=== PATIENT | male | born 1970 | race Caucasian/White ===

== ENCOUNTER → 2017-01-17 13:34 | Emergency (ER) | payer OTHER ==
[~2017-01-17 13:34] MED LIST: Iohexol 300* (CONTRAST) 10 ML SDV IV ONE; Ketorolac INJ* 30 MG/ML 1 ML VIAL IV ONE; Morphine INJ* 4 MG/ML 1 ML SYRINGE IV ONE; Ondansetron INJ* 2 MG/ML VIAL IV ONE
[2017-01-17 17:46] LABS: Hematocrit 41 % (42-52); Hemoglobin 13.6 g/dl (14.0-18.0); Mean Corpuscular HGB Conc 33 g/dl (31-36); Mean Corpuscular Hemoglobin 26 pg (27-31); Mean Corpuscular Volume 79 fL (80-94); Mean Platelet Volume 8 um3 (7.4-10.4); Red Blood Count 5.16 10^6/ul (4.0-5.4); Red Cell Distribution Width 14 % (10.5-15)
[2017-01-17] MEDS: NS 0.9% 1000 ML* 2,000 ML IV ONE (17:49)
[2017-01-17 18:26] LABS: Albumin 4.6 g/dL (3.2-5.2); BUN/Creatinine Ratio 10.8 (8-20); C Reactive Protein 1.1 mg/L (< 5.00); Calcium 9.8 mg/dL (8.6-10.3); EGFR African American 92.5 (>60); Globulin 3.2 g/dL (2-4); Potassium 3.6 mmol/L (3.5-5.0); Total Bilirubin 0.9 mg/dL (0.2-1.0); Total Protein 7.8 g/dL (6.4-8.9)
[2017-01-17 19:39] LABS: Urine Bilirubin Negative (Negative); Urine Glucose Negative (Negative); Urine Nitrite Negative (Negative)
--- NOTE | 2017-01-17 20:16 | RAD ---
Indication: Right abdominal pain and flank pain. Contrast: 113 mL of Omnipaque 300 was given. The lung bases demonstrate no pleural fluid, nodules or masses. Heart is of normal size without evidence of pericardial effusion. Liver is normal in size. It is diffusely decreased in density consistent with hepatic steatosis. The spleen is normal in size. Pancreas demonstrates no mass or pancreatic ductal dilatation. The gallbladder demonstrates no calcified gallstones, pericholecystic fluid or wall thickening. No adrenal lesions are noted. The kidneys demonstrate symmetric nephrograms. Right-sided cortical cyst is noted measuring up to 17 mm. No hydronephrosis or hydroureter is noted. Diffuse wall thickening of the urinary bladder is present however the urinary bladder is otherwise unremarkable. The aorta demonstrates no evidence of aneurysmal dilatation. Inferior vena cava are unremarkable. No hernias are noted. No evidence of bowel obstruction is noted. No pelvic adenopathy is noted. Prostate and seminal vesicles are unremarkable. No hernias are noted. IMPRESSION: NO EVIDENCE OF OBSTRUCTIVE UROPATHY IS NOTED. NO EVIDENCE OF ABNORMAL MASSES OR FLUID COLLECTIONS ARE IDENTIFIED.
--- NOTE | 2017-01-17 20:24 | ED ---
Gin William Claudia, scribed for Luis Monsalve MD on 01/17/17 at 1900 . Progress - Progress Note Progress Note: Sign-out received at [address] Knight awaiting CT A/P. CT Abdomen/Pelvis: IMPRESSION: NO EVIDENCE OF OBSTRUCTIVE UROPATHY IS NOTED. NO EVIDENCE OF ABNORMAL MASSES OR FLUID COLLECTIONS ARE IDENTIFIED. The pt was notified of the CT results at 2025. The pt will be d/c home with follow-up instructions. Course/Dx - Diagnoses Provider Diagnoses: Flank pain The documentation as recorded by the Gin barrett Claudia accurately reflects the service I personally performed and the decisions made by Bello flynn David, MD.
[2017-01-17 21:20] VITALS: BP 143/100
--- NOTE | 2017-01-22 22:38 | ED ---
Oma William Alfonso, scribed for Demetri Knight MD on 01/17/17 at 1734 . Abdominal Pain/Male - HPI Summary HPI Summary: This patient is a 46 year old male presenting to [facility] c/o sharp right-sided flank pain since 5 days. His pain is constant and has gradually become worse. He rates the pain 10/10 in severity. Sx aggravated and alleviated by nothing. He denies urinary symptoms, fever, nausea, vomiting, melena, and diarrhea. - History of Current Complaint Chief Complaint: EDFlankPain Stated Complaint: RT FLANK PAIN Time Seen by Provider: 01/17/17 17:18 Hx Obtained From: Patient Onset/Duration: Gradual Onset, Lasting Days - 5 days, Worse Since Timing: Constant Severity Initially: Severe Severity Currently: Severe Pain Intensity: 10 Pain Scale Used: 0-10 Numeric Location: Flank - Right Character: Sharp Aggravating Factor(s): Nothing Alleviating Factor(s): Nothing Associated Signs And Symptoms: Positive: Other - Negative urinary symptoms, fever, nausea, vomiting, melena, and diarrhea. - Allergies/Home Medications Allergies/Adverse Reactions: Allergies Allergy/AdvReac Type Severity Reaction Status Date / Time Sulfa Antibiotics Allergy Rash And Verified 06/05/16 17:08 Itching PMH/Surg Hx/FS Hx/Imm Hx Endocrine/Hematology History: Denies: Hx Diabetes Cardiovascular History: Denies: Hx Hypertension History: Denies: Hx Dialysis, Hx Renal Disease - Surgical History Surgery Procedure, Year, and Place: Appendectomy 2008 [facility] Infectious Disease History: No Infectious Disease History: Denies: Traveled Outside the [place] in Last 30 Days - Family History Known Family History: Positive: Other - CVA father - Social History Alcohol Use: Occasionally Hx Substance Use: No Substance Use Type: Reports: None Hx Tobacco Use: No Smoking Status (MU): Never Smoked Tobacco Review of Systems Negative: Fever Positive: Abdominal Pain - Right-sided flank pain, Other - Negative melena and diarrhea. Negative: Vomiting, Nausea Positive: no symptoms reported All Other Systems Reviewed And Are Negative: Yes Physical Exam Triage Information Reviewed: Yes Vital Signs On Initial Exam: Initial Vitals Temp Pulse Resp BP Pulse Ox 98.5 F 79 15 152/100 98 01/17/17 13:35 01/17/17 13:35 01/17/17 13:35 01/17/17 13:35 01/17/17 13:35 Vital Signs Reviewed: Yes Appearance: Positive: Well-Appearing, Pain Distress - Mild Skin: Positive: Warm, Skin Color Reflects Adequate Perfusion, Dry Head/Face: Positive: Normal Head/Face Inspection Eyes: Positive: EOMI, TANVIR ENT: Positive: Normal ENT inspection Neck: Positive: Supple, Nontender Respiratory/Lung Sounds: Positive: Clear to Auscultation, Breath Sounds Present Cardiovascular: Positive: RRR Abdomen Description: Positive: Other: - Tender right flank. Anterior abdomen not tender. Bowel Sounds: Positive: Present Musculoskeletal: Positive: Normal, Strength/ROM Intact Neurological: Positive: Normal, Sensory/Motor Intact, Alert, Oriented to Person Place, Time Psychiatric: Positive: Affect/Mood Appropriate Diagnostics - Vital Signs Vital Signs Temp Pulse Resp BP Pulse Ox 01/17/17 15:07 98.3 F 74 16 137/100 99 01/17/17 13:35 98.5 F 79 15 152/100 98 - Laboratory Lab Results: Lab Results 01/17/17 01/17/17 01/17/17 Range/Units 17:39 17:39 17:39 WBC 5.0 (3.5-10.8) 10^3/ul RBC 5.16 (4.0-5.4) 10^6/ul Hgb 13.6 L (14.0-18.0) g/dl Hct 41 L (42-52) % MCV 79 L (80-94) fL MCH 26 L (27-31) pg MCHC 33 (31-36) g/dl RDW 14 (10.5-15) % Plt Count 210 (150-450) 10^3/ul MPV 8 (7.4-10.4) um3 Neut % (Auto) 61.3 (38-83) % Lymph % (Auto) 30.9 (25-47) % Bay % (Auto) 6.4 (1-9) % Eos % (Auto) 0.9 (0-6) % Baso % (Auto) 0.5 (0-2) % Absolute Neuts (auto) 3.1 (1.5-7.7) 10^3/ul Absolute Lymphs (auto) 1.5 (1.0-4.8) 10^3/ul Absolute Monos (auto) 0.3 (0-0.8) 10^3/ul Absolute Eos (auto) 0 (0-0.6) 10^3/ul Absolute Basos (auto) 0 (0-0.2) 10^3/ul Absolute Nucleated RBC 0.01 10^3/ul Nucleated RBC % 0.1 APTT 31.1 (26.0-36.3) seconds Sodium 137 (133-145) mmol/L Potassium 3.6 (3.5-5.0) mmol/L Chloride 101 (101-111) mmol/L Carbon Dioxide 27 (22-32) mmol/L Anion Gap 9 (2-11) mmol/L BUN 12 (6-24) mg/dL Creatinine 1.11 (0.67-1.17) mg/dL Est GFR ( Amer) 92.5 (>60) Est GFR (Non-Af Amer) 72.0 (>60) BUN/Creatinine Ratio 10.8 (8-20) Glucose 90 (70-100) mg/dL Lactic Acid (0.5-2.0) mmol/L Calcium 9.8 (8.6-10.3) mg/dL Total Bilirubin 0.90 (0.2-1.0) mg/dL AST 26 (13-39) U/L ALT 37 (7-52) U/L Alkaline Phosphatase 45 (34-104) U/L C-Reactive Protein 1.10 (< 5.00) mg/L Total Protein 7.8 (6.4-8.9) g/dL Albumin 4.6 (3.2-5.2) g/dL Globulin 3.2 (2-4) g/dL Albumin/Globulin Ratio 1.4 (1-3) Lipase 17 (11.0-82.0) U/L Urine Color Urine Appearance Urine pH (5-9) Ur Specific [place] (1.010-1.030) Urine Protein (Negative) Urine Ketones (Negative) Urine Blood (Negative) Urine Nitrate (Negative) Urine Bilirubin (Negative) Urine Urobilinogen (Negative) Ur Leukocyte Esterase (Negative) Urine Glucose (Negative) 01/17/17 01/17/17 Range/Units 17:39 19:29 WBC (3.5-10.8) 10^3/ul RBC (4.0-5.4) 10^6/ul Hgb (14.0-18.0) g/dl Hct (42-52) % MCV (80-94) fL MCH (27-31) pg MCHC (31-36) g/dl RDW (10.5-15) % Plt Count (150-450) 10^3/ul MPV (7.4-10.4) um3 Neut % (Auto) (38-83) % Lymph % (Auto) (25-47) % Bay % (Auto) (1-9) % Eos % (Auto) (0-6) % Baso % (Auto) (0-2) % Absolute Neuts (auto) (1.5-7.7) 10^3/ul Absolute Lymphs (auto) (1.0-4.8) 10^3/ul Absolute Monos (auto) (0-0.8) 10^3/ul Absolute Eos (auto) (0-0.6) 10^3/ul Absolute Basos (auto) (0-0.2) 10^3/ul Absolute Nucleated RBC 10^3/ul Nucleated RBC % APTT (26.0-36.3) seconds Sodium (133-145) mmol/L Potassium (3.5-5.0) mmol/L Chloride (101-111) mmol/L Carbon Dioxide (22-32) mmol/L Anion Gap (2-11) mmol/L BUN (6-24) mg/dL Creatinine (0.67-1.17) mg/dL Est GFR ( Amer) (>60) Est GFR (Non-Af Amer) (>60) BUN/Creatinine Ratio (8-20) Glucose (70-100) mg/dL Lactic Acid 0.9 (0.5-2.0) mmol/L Calcium (8.6-10.3) mg/dL Total Bilirubin (0.2-1.0) mg/dL AST (13-39) U/L ALT (7-52) U/L Alkaline Phosphatase (34-104) U/L C-Reactive Protein (< 5.00) mg/L Total Protein (6.4-8.9) g/dL Albumin (3.2-5.2) g/dL Globulin (2-4) g/dL Albumin/Globulin Ratio (1-3) Lipase (11.0-82.0) U/L Urine Color Straw Urine Appearance Clear Urine pH 7.0 (5-9) Ur Specific [place] 1.008 L (1.010-1.030) Urine Protein Negative (Negative) Urine Ketones Negative (Negative) Urine Blood Negative (Negative) Urine Nitrate Negative (Negative) Urine Bilirubin Negative (Negative) Urine Urobilinogen Negative (Negative) Ur Leukocyte Esterase Negative (Negative) Urine Glucose Negative (Negative) Result Diagrams: 01/17/17 17:39 01/17/17 17:39 Lab Statement: Any lab studies that have been ordered have been reviewed, and results considered in the medical decision making process. - CT CT A/P CT Interpretation Completed By: Radiologist - Pending official radiologist interpretation. Abdominal Pain Fem Course/Dx - Diagnoses Provider Diagnoses: Flank pain Discharge - Discharge Plan Condition: Stable Disposition: HOME Prescriptions: Cyclobenzaprine TAB* [Flexeril 10 MG TAB*] 10 mg PO TID #30 tab Patient Education Materials: Cyclobenzaprine (By mouth), Flank Pain (ED) Referrals: Luci Robbins MD [Primary Care Provider] - (Please follow- up this week. ) The documentation as recorded by the Oma barrett Alfonso accurately reflects the service I personally performed and the decisions made by , Demetri Knight MD.
== END | disposition home or self-care (01) ==
LOC: ED 13:34
DX: R10.9 Unspecified abdominal pain (principal)
CPT/HCPCS: 36415; 74177; 80053; 81003; 83605; 83690; 85025; 85730; 86140; J1885; J2270; J2405; Q9967